=== PATIENT | male | born 1975 | race Caucasian/White ===

== ENCOUNTER 2017-12-27 11:33 | Emergency (ER) | payer BC, OTHER ==
[2017-12-27] MEDS ORDERED: Ketorolac INJ* 60 MG/2 ML VIAL IM ONE (13:24)
--- NOTE | 2017-12-27 16:45 | ED ---
Skin Complaint - HPI Summary HPI Summary: Lt posterior thigh irritation. Has had a cyst here for 20+ years but past week it's gotten larger and painful. Was seen by PCP Sunday and given keflex w/o relief. Denies fever, chills but can't take pressure and pain anymore - would like it drained/removed. - History of Current Complaint Chief Complaint: EDExtremityLower Time Seen by Provider: 12/27/17 13:16 Stated Complaint: POSS CYST ON LT LOWER EXTREMITY Hx Obtained From: Patient Pain Intensity: 4 - Allergy/Home Medications Allergies/Adverse Reactions: Allergies Allergy/AdvReac Type Severity Reaction Status Date / Time No Known Allergies Allergy Verified 12/27/17 11:42 Home Medications: Home Medications NK [No Home Medications Reported] 12/27/17 [History Confirmed 12/27/17] PMH/Surg Hx/FS Hx/Imm Hx Previously Healthy: Yes Endocrine/Hematology History: Denies: Hx Anticoagulant Therapy, Hx Blood Disorders - Immunization History Immunizations Up to Date: Yes Infectious Disease History: No Infectious Disease History: Denies: Hx of Known/Suspected MRSA, Traveled Outside the in Last 30 Days - Social History Occupation: Employed Full-time - Contractor Lives: With Family Alcohol Use: None - h/o substance abuse - has not used in years Hx Substance Use: Yes - h/o substance abuse - has not used in years Hx Tobacco Use: Yes Smoking Status (MU): Current Every Day Smoker Amount Used/How Often: 1PPD Review of Systems Constitutional: Negative Negative: Fever, Chills Gastrointestinal: Negative Negative: Vomiting, Nausea Positive: no symptoms reported Musculoskeletal: Negative Skin: Other - painful cyst Neurological: Negative Psychological: Normal All Other Systems Reviewed And Are Negative: Yes Physical Exam Triage Information Reviewed: Yes Vital Signs On Initial Exam: Initial Vitals Temp Pulse Resp BP Pulse Ox 97.4 F 86 16 132/71 97 12/27/17 11:39 12/27/17 11:39 12/27/17 11:39 12/27/17 11:39 12/27/17 11:39 Vital Signs Reviewed: Yes Appearance: Positive: Well-Appearing, Well-Nourished, Pain Distress - mild Skin: Positive: Warm, Skin Color Reflects Adequate Perfusion, Dry - erythema and induration about a central pore of the Left proximal posterior thigh- no streaking, no drainage Head/Face: Positive: Normal Head/Face Inspection Eyes: Positive: EOMI ENT: Positive: Hearing grossly normal Respiratory/Lung Sounds: Positive: Breath Sounds Present Cardiovascular: Positive: Pulses are Symmetrical in both Upper and Lower Extremities. Negative: Leg Edema Left, Leg Edema Right Musculoskeletal: Positive: Normal, Strength/ROM Intact Neurological: Positive: Normal, Sensory/Motor Intact, Alert, Oriented to Person Place, Time, CN Intact II-III Psychiatric: Positive: Normal Procedures - Incision and Drainage Left Lower Posterior Proximal Thigh Anesthesia: Local, Lidocaine - w/ HC03 Instrument(s): Scalpel - #11 - copious cheesy material extruded - partial capsule however too deep to extract completely Packing: Gauze - kerlix packing + gazue pads + CINDY wrap - hemodynamically stable Diagnostics - Vital Signs Vital Signs Temp Pulse Resp BP Pulse Ox 12/27/17 11:39 97.4 F 86 16 132/71 97 - Laboratory Lab Statement: Any lab studies that have been ordered have been reviewed, and results considered in the medical decision making process. Re-Evaluation - Re-Evaluation First Eval Change: Improved - less pressure/pain Course/Dx - Course Course Of Treatment: Decompressed epidermal cyst within Lt posterior proximal thigh however sac was too deep to completelty extract in ED. Discussed w/ Dr. Cohen who agrees partial extraction of sac with packingis appropriate. Pt tolerated well and has some relief after procedure. He will continue his keflex and take ibuprofen as needed for pain/swelling. Declines norco w/ h/o previous subdtance abuse. Advised to f/u w/ general surgery in 2 days - he may also opt to go to ED sooner as needed. - Diagnoses Provider Diagnoses: Epidermal cyst Discharge - Sign-Out/Discharge Documenting (check all that apply): Patient Departure - Discharge Plan Condition: Stable Disposition: HOME Patient Education Materials: Incision and Drainage (ED) Forms: *Work Release Referrals: Abdon Savage MD [Medical Doctor] - Camron Hinojosa MD [Medical Doctor] - Additional Instructions: Keep dressing in place - covered and dry - until seen by general surgery in 2 days for wound check dressing change and possibly completion of sac extraction. Continue keflex as well as alternating ibuprofen and acetaminophen as needed for pain. Additionally you may ice the area for soreness, pain, swelling. Do not bend, lift, squat, or sit/stand for prolonged period of time. If wound has some discharge leak through, you may change the gauze only but do not remove the packing. *If in the meantime you experience heavy bleeding from the area, fever, chills, nausea, return to ED - Billing Disposition and Condition Condition: STABLE Disposition: Home
[2017-12-27 17:18] VITALS: BP 124/65
== END 2017-12-27 17:16 | disposition home or self-care (01) ==
LOC: ED 11:33
DX: L72.0 Epidermal cyst (principal); F17.200 Nicotine dependence, unspecified, uncomplicated
CPT/HCPCS: 10060; 87070; 87205; 87640; 87641; 96372; 99282; J1885